=== PATIENT | female | born 1995 | race Caucasian/White ===

== ENCOUNTER → 2021-03-28 | Outpatient (CLI) | payer OTHER ==
--- NOTE | 2021-03-28 20:18 | REPVR ---
PROCEDURE INFORMATION: Exam: MR Lumbar Spine Without Contrast Exam date and time: 03/28/2021 3:57 PM Age: 25 years old Clinical indication: Low back pain TECHNIQUE: Imaging protocol: Multiplanar magnetic resonance images of the lumbar spine without intravenous contrast. COMPARISON: No relevant prior studies available. FINDINGS: Vertebral body heights are maintained. No abnormal marrow signal. No cord compression. No abnormal cord signal. Conus medullaris terminates at the L1 level. Paravertebral soft tissues are unremarkable. L1-L2: No significant canal or foraminal narrowing. L2-L3: Broad-based disc bulge causing mild canal narrowing and mild bilateral foraminal narrowing. L3-L4: Broad-based disc bulge causing mild canal narrowing and mild bilateral foraminal narrowing. L4-L5: Broad-based disc bulge causing mild canal narrowing and mild bilateral foraminal narrowing. L5-S1: No significant canal or foraminal narrowing. IMPRESSION: Mild spondylotic changes of the lumbar spine, as detailed above. Electronically signed by: Mario Watkins On 03/28/2021 20:18:24 PM
== END ==
LOC: M RAD 14:32
PROVIDERS: ATTEND Anesthesiology Pain Medicine
DX: M54.5 Low back pain (principal)

== ENCOUNTER 2022-09-30 20:02 | Emergency (ER) | payer OTHER ==
[~2022-09-30] VITALS: Ht 165.1 cm; Wt 85.0 kg
[2022-09-30 20:03] VITALS: BP 120/82
[2022-09-30] MEDS ORDERED: CLONI1TA PO (20:19)
[2022-09-30] MEDS ORDERED: ATOM60CA2 PO (20:19)
[2022-09-30] MEDS ORDERED: ETON1VAG VG (20:19)
[2022-09-30] MEDS ORDERED: DOXY-444 PO (20:19)
[2022-09-30] MEDS ORDERED: SYNT50TA PO (20:19)
[2022-09-30] MEDS ORDERED: CITA20TA6 PO (20:19)
[2022-09-30] MEDS ORDERED: TRAZ-257 PO (20:34)
== END 2022-09-30 23:59 | disposition left against medical advice (07) ==
LOC: M ED 20:02
DX: Z53.21 Procedure and treatment not carried out due to patient leaving prior to being seen by health care provider (principal)

== ENCOUNTER → 2022-10-05 | Outpatient (CLI) | payer OTHER ==
[~2022-10-05] MED LIST: ATOM60CA2 PO; CITA20TA6 PO; CLONI1TA PO; DOXY-444 PO; ETON1VAG VG; SYNT50TA PO; TRAZ-257 PO
== END ==
LOC: M RAD 15:44
PROVIDERS: ATTEND Registered Nurse Diabetes Educator
DX: E03.9 Hypothyroidism, unspecified (principal)

== ENCOUNTER → 2022-11-16 | Outpatient (CLI) | payer OTHER ==
[~2022-11-16] MED LIST changes: +LIDOCAINE 1% MDV 20ML VIAL As Ordered ONE
[2022-11-16 14:45] VITALS: BP 123/80
== END ==
LOC: M IRPRO 13:39
PROVIDERS: ATTEND Registered Nurse Diabetes Educator
DX: E04.2 Nontoxic multinodular goiter (principal)

== ENCOUNTER → 2022-12-07 | Outpatient (REF) | payer OTHER ==
[~2022-12-07] MED LIST changes: -LIDOCAINE 1% MDV 20ML VIAL As Ordered ONE
== END ==
LOC: M LAB REF 17:40
PROVIDERS: ATTEND Nurse Practitioner Family
DX: J02.9 Acute pharyngitis, unspecified (principal)

== ENCOUNTER → 2023-01-05 | Outpatient (CLI) | payer OTHER | LOC: M SOG 08:08 | PROVIDERS: ATTEND Orthopaedic Surgery | DX: M25.562 Pain in left knee (principal) ==

== ENCOUNTER → 2023-02-04 | Outpatient (REF) | payer OTHER | LOC: M LAB REF 13:06 | PROVIDERS: ATTEND Registered Nurse | DX: Z12.4 Encounter for screening for malignant neoplasm of cervix (principal) | CPT/HCPCS: 87624; G0123 ==

== ENCOUNTER → 2023-02-28 | Outpatient (CLI) | payer OTHER | LOC: M PLAIMG 06:39 | PROVIDERS: ATTEND Orthopaedic Surgery | DX: M54.50 Low back pain, unspecified (principal); M25.552 Pain in left hip; M25.562 Pain in left knee ==

== ENCOUNTER → 2023-05-11 | Outpatient (CLI) | payer OTHER | LOC: M PLAIMG 12:03 | PROVIDERS: ATTEND Nurse Practitioner Family | DX: R05.9 Cough, unspecified (principal) ==

== ENCOUNTER 2023-11-29 06:59 | Observation (INO) | payer OTHER ==
[~2023-11-29] VITALS: Ht 165.1 cm; Wt 68.2 kg
[~2023-11-29 06:59] MED LIST changes: +ABIL1TAB13 PO; +ADDE1TAB20 PO; +ADDE30CA3 PO; +ALPR0.25 PO; +BUSP15TA47 PO; +THERTAB52 PO; +TRAZ-252 PO; +VITA100093 PO
[2023-11-29] MEDS ORDERED: LIDOCAINE 1% MDV 20ML VIAL As Ordered ONE (07:21)
[2023-11-29] MEDS ORDERED: EPINEPHrine INJ 1 MG/ML 1ML AMP As Ordered ONE (07:22)
[2023-11-29] MEDS ORDERED: fentaNYL 250 MCG/5 ML INJECTION As Ordered ONE (07:32)
[2023-11-29] MEDS ORDERED: SEVOFLURANE INHAL SOLN 250 ML BTL As Ordered ONE (07:32)
[2023-11-29] MEDS ORDERED: ONDANSETRON 4MG 2ML VIAL As Ordered ONE (07:32)
[2023-11-29] MEDS ORDERED: propofoL 200 MG/20 ML VIAL As Ordered ONE (07:32)
[2023-11-29] MEDS ORDERED: dexmedeTOMIDine (4MCG/ML)200MCG/50ML BTL (PRECEDEX) As Ordered ONE (07:32)
[2023-11-29] MEDS ORDERED: LIDOCAINE 2% 100MG/5ML SDV (FOR ANES.) As Ordered ONE (07:32)
[2023-11-29] MEDS ORDERED: ROCURONIUM BROMIDE 50MG/5ML VIAL As Ordered ONE (07:32)
[2023-11-29] MEDS ORDERED: MIDAZOLAM INJ 2MG/2ML VIAL As Ordered ONE (07:34)
[2023-11-29] MEDS ORDERED: LR 1,000 ML IV SCH (07:50)
[2023-11-29] MEDS ORDERED: VITA200012 PO (08:31)
[2023-11-29] MEDS ORDERED: CITA40TA6 PO (08:31)
[2023-11-29] MEDS ORDERED: TRAZ1TAB14 PO (08:31)
[2023-11-29] MEDS ORDERED: HOME MED LIST COMPLETE! XX SCH (08:35)
[2023-11-29] MEDS: SCOPOLAMINE 1MG TRANSDERMAL PATCH TOP ONE (08:53)
[2023-11-29] MEDS ORDERED: LACRILUBE (AKWA TEARS) OPHTH OINT 3.5GM As Ordered ONE (09:59)
[2023-11-29] MEDS: ceFAZolin SOD 2 GM in IV 1 EA IV ONE (10:05)
[2023-11-29] MEDS: HEPARIN SOD (PORCINE) 5000UNITS/ML 1ML VIAL/SYRINGE SQ ONE (10:10)
[2023-11-29] MEDS: GENTAMICIN SULF 80MG/2ML VIAL As Ordered ONE (10:27)
[2023-11-29] MEDS: HEPARIN SOD (PORCINE) 5000UNITS/ML 1ML VIAL/SYRINGE As Ordered ONE (10:28)
[2023-11-29] MEDS ORDERED: ePHEDrine SULFATE 25 MG/5 ML(5MG/ML) SYRINGE As Ordered ONE (10:35)
[2023-11-29] MEDS ORDERED: HYDROmorphone HCL 2MG/ML 1ML VIAL As Ordered ONE (10:50)
[2023-11-29] MEDS ORDERED: ACETAMINOPHEN 1000MG 100ML IV BAG As Ordered ONE (10:50)
[2023-11-29] MEDS ORDERED: SUGAMMADEX SODIUM 500 MG/5 ML VIAL (BRIDION) As Ordered ONE (10:50)
[2023-11-29] MEDS ORDERED: PHENYLephrine 500MCG 5ML (100MCG/ML) SYRINGE As Ordered ONE (10:53)
[2023-11-29] MEDS ORDERED: fentaNYL 100 MCG/2 ML INJECTION IV PRN (13:05)
[2023-11-29] MEDS ORDERED: ONDANSETRON 4MG 2ML VIAL IV PRN ×2 (13:05→13:25)
[2023-11-29] MEDS ORDERED: oxyCODONE 5MG TAB PO PRN (13:05)
[2023-11-29] MEDS ORDERED: MORPHINE 2 MG/ML 1ML VIAL IV PRN (13:05)
[2023-11-29 15:15] VITALS: BP 108/70; TEMP 97.3; O2SAT 97
[2023-11-29] MEDS: LEVOTHYROXINE 50MCG TABLET (0.05MG) PO SCH (15:42)
[2023-11-29] MEDS: busPIRone 5 MG TAB PO SCH (15:43)
[2023-11-29] MEDS: PERCOCET 5MG/325MG TAB PO PRN (15:44)
[2023-11-29 15:45] VITALS: BP 104/62; TEMP 97.7; O2SAT 97
[2023-11-29] MEDS: LR 1,000 ML IV SCH (16:32)
[2023-11-29 16:45] VITALS: BP 111/69; TEMP 97; O2SAT 97
[2023-11-29 17:45] VITALS: BP 103/68; TEMP 97; O2SAT 98
[2023-11-29] MEDS: traMADol 50 MG TAB PO PRN (18:22)
[2023-11-29] MEDS: ceFAZolin SOD 1 GM in D5W MINI-BAG PLUS 50 ML IV SCH (18:23)
[2023-11-29 18:45] VITALS: BP 110/66; TEMP 97.7; O2SAT 97
[2023-11-29 20:46] VITALS: BP 110/66
[2023-11-29] MEDS: cloNIDine 0.1MG TABLET PO SCH (20:46)
[2023-11-30 01:00] VITALS: BP 98/59; TEMP 97.2; O2SAT 98
[2023-11-30 05:00] VITALS: BP 93/60; TEMP 97.7; O2SAT 98
[2023-11-30] MEDS: ACETAMINOPHEN TAB 650MG DOSE (2X325MG) PO PRN (06:02)
[2023-11-30 08:10] VITALS: BP 103/60
[2023-11-30] MEDS ORDERED: PERCOCET PO (10:45)
== END 2023-11-30 11:10 | disposition home or self-care (01) ==
LOC: M SDC 06:59 → M RR INP 07:00 → M MS5PR 15:15
PROVIDERS: ADMIT Plastic Surgery Surgery of the Hand; ATTEND Plastic Surgery Surgery of the Hand
DX: N62 Hypertrophy of breast (principal); N64.81 Ptosis of breast
CPT/HCPCS: 19316; 19318; 81025; 88304; 96365; 96366; C9290; J0131; J0665; J0690; J1100; J1170; J1580; J2250; J2371; J2405; J3010